=== PATIENT | male | born 1985 | race Two or more races ===

== ENCOUNTER 2019-04-16 23:20 | Emergency (ER) | payer OTHER ==
[~2019-04-16] VITALS: Ht 182.9 cm; Wt 95.3 kg
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
--- NOTE | 2019-04-16 23:53 | NUR ---
XRAY AT BEDSIDE
[2019-04-17] MEDS ORDERED: HYDROCODONE/APAP 5/325MG 1 EACH TABLET PO ONE (00:30)
[2019-04-17] MEDS ORDERED: HYDROCODONE/APAP 5/325MG 1 EACH TABLET ONE (00:36)
--- NOTE | 2019-04-17 01:15 | NUR ---
PT OKAY TO BE BOOKED. SPLINT PLACED ON R ANKLE.
[2019-04-17 02:11] VITALS: BP 122/76
== END 2019-04-17 01:30 | disposition home or self-care (01) ==
LOC: ER 23:22
DX: S82.491A Other fracture of shaft of right fibula, initial encounter for closed fracture (principal); X50.1XXA Overexertion from prolonged static or awkward postures, initial encounter; Y93.39 Activity, other involving climbing, rappelling and jumping off; Y92.89 Other specified places as the place of occurrence of the external cause; Y99.8 Other external cause status
CPT/HCPCS: 73610-TC